=== PATIENT | female | born 1965 | race Caucasian/White ===

== ENCOUNTER → 2024-10-27 | Day surgery (SDC) | payer BC ==
[2024-10-25 15:11] VITALS: BMI 27.6
[2024-10-27] MEDS: SODIUM CHLORIDE 0.9% 500 ML 500 ML IV SCH (08:00)
[2024-10-27] MEDS: IV FLUID CONTINUATION 1,000 ML IV ONE (08:00)
[2024-10-27 08:22] VITALS: TEMP 99
[2024-10-27] MEDS: BENZOCAINE SPRAY 1 EACH MUCOUS MEM ONE (09:13)
[2024-10-27] MEDS: MIDAZOLAM 2 MG/2 ML VIAL IVP ONE ×3 (09:17→09:26)
[2024-10-27] MEDS: fentaNYL (PF) 50 MCG/ML 5 ML AMP IVP PRN (09:25)
[2024-10-27] MEDS: MIDAZOLAM 2 MG/2 ML VIAL IV PRN (09:25)
[2024-10-27] MEDS: BENZOCAINE SPRAY 1 EACH MM SCH (09:26)
[2024-10-27 10:16] VITALS: PULSE 60; RESP 14
--- NOTE | 2024-10-27 10:29 | P.PCN ---
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 Pulse oximetry and heart monitors were attached to the patient. The patient throat was sprayed using lidocaine. The patient was turned into left lateral position. After that a bite guard was placed. After an appropriate conscious sedation was initiated, the transesophageal echocardiogram was advanced through a bite guard into the mid esophagus. A 2-D echocardiogram images, color Doppler images, continuous wave images, pulse-wave images, of various cardiac structure were performed. After that the transesophageal echocardiogram probe was advanced into the stomach and fixed to obtain transgastric view was. The probe was brought into the mid esophagus. Inter-atrial septum was interrogated using 2D images, color Doppler images, and then contrast study. After that transesophageal echocardiogram was withdrawn out and upon withdrawing the descending thoracic aorta all the way up to the arch was evaluated. CONCLUSION: 1. Normal biventricular dimension and systolic function and overall normal cardiac chamber sizes 2. Intact left atrial appendage and intact interatrial septum 3. Bicuspid aortic valve with fusion of the right and noncoronary cusp and evidence of moderate aortic insufficiency and moderate aortic stenosis with a mean gradient of 20 mmHg 4. Normal mitral valve with mild MR only 5. Normal tricuspid valve and pulmonary 6. No evidence of pericardial effusion
[2024-10-27 11:29] VITALS: BP 101/56
== END ==
LOC: CATHCVL 07:39
PROVIDERS: ATTEND Internal Medicine Interventional Cardiology
DX: Q23.81 Bicuspid aortic valve (principal); I35.2 Nonrheumatic aortic (valve) stenosis with insufficiency
CPT/HCPCS: 93312; 93320; 93325; J2250; J3010